=== PATIENT | female | born 1975 | race American Indian/Alaskan Native ===

== ENCOUNTER 2018-12-13 09:41 | Emergency (ER) | payer OTHER ==
[2018-12-13] MEDS ORDERED: MORPHINE IV ONE ×2 (10:37→12:02)
[2018-12-13] MEDS ORDERED: ZOFRAN IV ONE (10:37)
[2018-12-13] MEDS ORDERED: APRESOLINE IV ONE (10:37)
--- NOTE | 2018-12-13 10:46 | Emergency Department Report ---
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 The patient woke up this morning around 4 AM with a frontal headache and then had some nausea and vomiting. She still tried to go into work but had to pull worker 3 different times for her vomiting. When she got to work and ambulance was called and she was found to have a blood pressure with a systolic of 240. She does have a history of hypertension for which she used to be on hydrochlorothiazide and valsartan but she has not taken that in months. She has [employer] insurance but has not seen a primary care physician for "a while." This morning she took some acetaminophen for her symptoms without much relief. No recent travel or sick contacts at home. She denies any vision luis nge, slurred speech or any neurological deficits. ED Past Medical Hx - Past Medical History Previous Medical History?: Yes Hx Hypertension: Yes - Social History Smoking Status: Never Smoker - Medications Home Medications: Home Medications Medication Instructions Recorded Confirmed Last Taken Type Ondansetron [Zofran Odt] 4 mg PO Q8HR PRN #15 tab.rapdis 12/13/18 Unknown Rx amLODIPine [Norvasc] 10 mg PO DAILY #30 tab 12/13/18 Unknown Rx ED Review of Systems ROS: Stated complaint: HEADACHE/HYPERTENSION Other details as noted in HPI Comment: All other systems reviewed and negative Constitutional: denies: chills, fever Eyes: denies: eye pain, vision change ENT: denies: ear pain, throat pain Respiratory: denies: cough, shortness of breath Cardiovascular: denies: chest pain, palpitations Gastrointestinal: nausea, vomiting. denies: abdominal pain Genitourinary: denies: dysuria, discharge Musculoskeletal: denies: back pain, arthralgia Skin: denies: rash, lesions Neurological: headache, other (lightheaded). denies: numbness, paresthesias, confusion Physical Exam - Physical Exam Vital Signs: Vital Signs 12/13/18 12/13/18 09:58 10:00 Temperature 98.8 F Pulse Rate 91 H 91 H Respiratory 18 Rate Blood Pressure 169/97 O2 Sat by Pulse 99 99 Oximetry Physical Exam: GENERAL: The patient is well-developed well-nourished. HENT: Normocephalic. Atraumatic. Patient has moist mucous membranes. EYES: Extraocular motions are intact. Pupils equal reactive to light bilaterally. No nystagmus. NECK: Supple. Trachea is midline. CHEST/LUNGS: Clear to auscultation. There is no respiratory distress noted. HEART/CARDIOVASCULAR: Regular. There is no tachycardia. There is no murmur. ABDOMEN: Abdomen is soft, nontender. Patient has normal bowel sounds. There is no abdominal distention. SKIN: Skin is warm and dry. NEURO: The patient is awake, alert, and oriented. The patient is cooperative. The patient has no focal neurologic deficits. The patient has normal speech. Cranial nerves II through XII grossly intact. MUSCULOSKELETAL: There is no tenderness or deformity. There is no limitation range of motion. There is no evidence of acute injury. ED Course Vital Signs 12/13/18 12/13/18 09:58 10:00 Temperature 98.8 F Pulse Rate 91 H 91 H Respiratory 18 Rate Blood Pressure 169/97 O2 Sat by Pulse 99 99 Oximetry ED Medical Decision Making - Lab Data Result diagrams: 12/13/18 11:06 12/13/18 11:06 - EKG Data -: EKG Interpreted by Sc EKG shows normal: sinus rhythm, axis, intervals, QRS complexes, ST-T waves Rate: normal - EKG Data When compared to previous EKG there are: previous EKG unavailable Interpretation: normal EKG - Radiology Data Radiology results: report reviewed CT HEAD WITHOUT CONTRAST INDICATION: Headache. COMPARISON: None similar at this institution. FINDINGS: Noncontrast head CT somewhat limited due to artifact, though suggests normal ventricles and sulci without definite acute or recent infarct, hemorrhage, mass effect or midline shift. Minimal, benign bilateral basal ganglia calcifications. Normal posterior fossa with preserved basilar cisterns. Normal imaged eye globes. Rightward nasal septal deviation. Somewhat hypoplastic/aplastic bilateral frontal sinuses. Mild right sphenoid sinus mucosal thickening anterolaterally as on axial image 11. Clear remainder imaged paranasal sinuses and mastoid air cells. Normal calvarium and scalp. Few small radiopaque dental material. CONCLUSION: No acute intracranial CT abnormality with few other findings, as above. Please correlate. Thank you for the opportunity to participate in this patient's care. Transcribed By: RS Dictated By: KOFI DIAMOND MD Electronically Authenticated By: KOFI DIAMOND MD Signed Date/Time: 12/13/18 1121 - Medical Decision Making The patient presents to the ED with the complaint of a frontal headache, N/V and hypertension with medication noncompliance. On examination the patient does not have any focal, motor or sensory deficits in her cranial nerves are intact. An IV was placed and the patient was given some pain medication, antihypertensives and antiemetics. A CT scan of the head without contrast was done that does not show any bleed, shift, mass, ischemia, or any other acute process. The patient's labs have been unremarkable including a CBC, metabolic panel, TSH. She was reevaluated multiple times of hours and is feeling greatly improved. Prior to discharge, the patient was seen ambulatory in the emergency department and appears and feels stable. She will be discharged home with some Zofran and will be started on amlodipine. We discussed dietary and lifestyle changes that can be made to assist with her hypertension. The patient understands that she should return to the emergency department with any w orsening of her symptoms or any acute distress. The patient has [facility] [place] insurance and therefore will be able to go and see a primary care physician. - Differential Diagnosis TIA, Migraine, Tension MARTELL, SAH Critical Care Time: No Critical care attestation.: If time is entered above; I have spent that time in minutes in the direct care of this critically ill patient, excluding procedure time. ED Disposition Clinical Impression: Lightheaded Hypertension Qualifiers: Hypertension type: essential hypertension Qualified Code(s): I10 - Essential (primary) hypertension Headache Qualifiers: Headache type: unspecified Headache chronicity pattern: unspecified pattern Intractability: not intractable Qualified Code(s): R51 - Headache Nausea & vomiting Qualifiers: Vomiting type: unspecified Vomiting Intractability: non-intractable Qualified Code(s): R11.2 - Nausea with vomiting, unspecified Disposition: DC-01 TO HOME OR SELFCARE Is pt being admited?: No Condition: Stable Instructions: Acute Headache (ED), Acute Nausea and Vomiting (ED), Hypertension (ED), Lightheadedness (ED) Additional Instructions: Please follow-up with your [facility] primary care physician in the next 2 days. Return to the emergency Department with any worsening of her symptoms or any acute distress. I am starting you on a blood pressure medication called Norvasc/amlodipine that is taken once per day, usually in the morning. Try and stay away from foods that are high in salt and caffeinated products. Keep a blood pressure log. Prescriptions: amLODIPine [Norvasc] 10 mg PO DAILY #30 tab Ondansetron [Zofran Odt] 4 mg PO Q8HR PRN #15 tab.rapdis PRN Reason: Nausea Referrals: PRIMARY CARE, [Referring] - 2-3 Days Time of Disposition: 13:18
--- NOTE | 2018-12-13 11:21 | Cat Scan Report ---
CT HEAD WITHOUT CONTRAST INDICATION: Headache. COMPARISON: None similar at this institution. FINDINGS: Noncontrast head CT somewhat limited due to artifact, though suggests normal ventricles and sulci without definite acute or recent infarct, hemorrhage, mass effect or midline shift. Minimal, benign bilateral basal ganglia calcifications. Normal posterior fossa with preserved basilar cisterns. Normal imaged eye globes. Rightward nasal septal deviation. Somewhat hypoplastic/aplastic bilateral frontal sinuses. Mild right sphenoid sinus mucosal thickening anterolaterally as on axial image 11. Clear remainder imaged paranasal sinuses and mastoid air cells. Normal calvarium and scalp. Few small radiopaque dental material. CONCLUSION: No acute intracranial CT abnormality with few other findings, as above. Please correlate. Thank you for the opportunity to participate in this patient's care.
[2018-12-13 11:23] LABS: Basophils # (Auto) 0.1 K/mm3 (0.0-0.1); Basophils % (Auto) 1.7 % (0.0-1.8); Eosinophils # (Auto) 0.1 K/mm3 (0.0-0.4); Eosinophils % (Auto) 0.7 % (0.0-4.3); Hematocrit 36.4 % (30.3-42.9); Hemoglobin 11.5 gm/dl (10.1-14.3); Lymphocytes # (Auto) 2.2 K/mm3 (1.2-5.4); Lymphocytes % (Auto) 26.7 % (13.4-35.0); Mean Corpuscular HGB Conc 32 % (30-34); Mean Corpuscular Volume 71 fl (79-97); Monocytes # (Auto) 0.3 K/mm3 (0.0-0.8); Monocytes % (Auto) 3.5 % (0.0-7.3); Platelet Count 339 K/mm3 (140-440); Red Blood Count 5.13 M/mm3 (3.65-5.03); Red Cell Distribution Width 17.2 % (13.2-15.2)
[2018-12-13 11:40] LABS: BUN/Creatinine Ratio 13; Blood Urea Nitrogen 8 mg/dL (7-17); Calcium 8.4 mg/dL (8.4-10.2); Hemolysis Index 3
[2018-12-13] MEDS ORDERED: TORADOL IV ONE (12:02)
[2018-12-13 13:37] VITALS: BP 153/82
== END 2018-12-13 13:37 | disposition home or self-care (01) ==
LOC: ED 09:41
DX: R42 Dizziness and giddiness (principal); I10 Essential (primary) hypertension; R51 Headache; R11.2 Nausea with vomiting, unspecified
CPT/HCPCS: 36415; 70450; 80048; 84443; 85025; 93005; 93010; 96374; 96375; 96376; 99285; J0360; J1885; J2270; J2405